=== PATIENT | female | born 1955 | race Hispanic/Latino ===

== ENCOUNTER → 2023-09-17 | Day surgery (SDC) | payer BC, OTHER ==
[2023-09-10 08:36] LABS: BASOPHILS % 0.5 % (0.0-1.0); EOSINOPHILS # (AUTO) 0.1 (0.0-0.4); EOSINOPHILS % 0.9 % (0.0-6.0); HEMATOCRIT 35.2 % (34.2-44.1); HEMOGLOBIN 11.5 g/dL (12.0-16.0); LYMPHOCYTES # (AUTO) 2.5 (1.0-3.2); LYMPHOCYTES % 38.8 % (18.0-39.1); MEAN CORPUSCULAR HEMOGLOBIN 28.4 pg (28-32); MEAN CORPUSCULAR HGB CONC 32.7 g/dL (31-35); MEAN CORPUSCULAR VOLUME 86.9 fL (81-99); MONOCYTES # (AUTO) 0.4 (0.2-0.8); MONOCYTES % 6.1 % (4.4-11.3); NEUTROPHILS # (AUTO) 3.4 (2.1-6.9); NEUTROPHILS % 53.5 % (38.7-80.0); PLATELET COUNT 194 x10e3/uL (140-360); RED BLOOD COUNT 4.05 x10e6/uL (3.6-5.1); RED CELL DISTRIBUTION WIDTH 14.8 % (11.7-14.4)
[~2023-09-17] MED LIST: CARBAMAZEPINE200 MG PO; CRESTOR10 MG PO; CYCLOBENZAPRINE10 MG PO; DEXILANT60 MG PO; FISH OIL 1,0001 EAC7; KAZANO PO; LACTATED RINGER'S 1,000 ML ONE; LEVOCETIRIZINE D5 MG PO; LISINOPRIL5 MG PO; METFORMIN HCL500 MG PO; METOPROLOL TART25 MG PO; MULTI-VITAMIN1 EACH PO; PANTOPRAZOLE SO40 MG PO; PROPOFOL IV EMULSION 10 MG/ML 20 ML VIAL ONE; TEGRETOL XR200 MG PO; TEGRETOL200 MG PO; VASCEPA PO; ZOLPIDEM TARTRAT5 MG PO
[2023-09-17 07:23] VITALS: TEMP 97.8
[2023-09-17 07:35] VITALS: BP 127/61; PULSE 61; RESP 17; O2SAT 100
== END | disposition home or self-care (01) ==
LOC: OR 05:12
PROVIDERS: ATTEND Internal Medicine Gastroenterology
DX: K92.1 Melena (principal); K57.30 Diverticulosis of large intestine without perforation or abscess without bleeding; K59.00 Constipation, unspecified; K64.8 Other hemorrhoids; K21.9 Gastro-esophageal reflux disease without esophagitis; I10 Essential (primary) hypertension; E11.9 Type 2 diabetes mellitus without complications; Z79.84 Long term (current) use of oral hypoglycemic drugs; F32.A Depression, unspecified; M85.80 Other specified disorders of bone density and structure, unspecified site; G43.909 Migraine, unspecified, not intractable, without status migrainosus; M19.91 Primary osteoarthritis, unspecified site; M54.2 Cervicalgia; M54.9 Dorsalgia, unspecified; G89.29 Other chronic pain; Z01.810 Encounter for preprocedural cardiovascular examination; Z01.812 Encounter for preprocedural laboratory examination; Z79.899 Other long term (current) drug therapy
CPT/HCPCS: 36415 ×2; 45378; 82948; 85025; 93005; J2704; J7121

== ENCOUNTER → 2024-09-15 | Day surgery (SDC) | payer BC, OTHER ==
[2024-09-08 10:16] LABS: BASOPHILS # (AUTO) 0.1 (0.0-0.1); BASOPHILS % 0.8 % (0.0-1.0); EOSINOPHILS % 0.7 % (0.0-6.0); HEMATOCRIT 37.2 % (34.2-44.1); HEMOGLOBIN 11.6 g/dL (12.0-16.0); LYMPHOCYTES # (AUTO) 1.7 (1.0-3.2); MEAN CORPUSCULAR HEMOGLOBIN 28.9 pg (28-32); MEAN CORPUSCULAR HGB CONC 31.2 g/dL (31-35); MEAN CORPUSCULAR VOLUME 92.5 fL (81-99); MONOCYTES # (AUTO) 0.3 (0.2-0.8); MONOCYTES % 5.6 % (4.4-11.3); NEUTROPHILS # (AUTO) 3.9 (2.1-6.9); NEUTROPHILS % 64.6 % (38.7-80.0); PLATELET COUNT 145 x10e3/uL (140-360); RED BLOOD COUNT 4.02 x10e6/uL (3.6-5.1); RED CELL DISTRIBUTION WIDTH 15.5 % (11.7-14.4); WHITE BLOOD COUNT 6.03 x10e3/uL (4.8-10.8)
[~2024-09-15] MED LIST changes: -LACTATED RINGER'S 1,000 ML ONE; +LEVOTHYROXINE50 MCG PO; +MIDAZOLAM HCL 2 MG/2 ML VIAL ONE; -PROPOFOL IV EMULSION 10 MG/ML 20 ML VIAL ONE
[2024-09-15] MEDS: LACTATED RINGER'S 1,000 ML ONE (07:00)
[2024-09-15 08:36] VITALS: TEMP 97.1
[2024-09-15 08:50] VITALS: BP 121/66; PULSE 68; RESP 18; O2SAT 100
== END | disposition home or self-care (01) ==
LOC: OR 06:18
PROVIDERS: ATTEND Internal Medicine Gastroenterology
DX: K21.9 Gastro-esophageal reflux disease without esophagitis (principal); K29.50 Unspecified chronic gastritis without bleeding; K44.9 Diaphragmatic hernia without obstruction or gangrene; K57.30 Diverticulosis of large intestine without perforation or abscess without bleeding; K58.9 Irritable bowel syndrome, unspecified; E11.9 Type 2 diabetes mellitus without complications; I10 Essential (primary) hypertension; E78.5 Hyperlipidemia, unspecified; E03.9 Hypothyroidism, unspecified; Z88.6 Allergy status to analgesic agent; Z01.810 Encounter for preprocedural cardiovascular examination; Z01.812 Encounter for preprocedural laboratory examination; Z79.84 Long term (current) use of oral hypoglycemic drugs; Z79.899 Other long term (current) drug therapy
CPT/HCPCS: 36415; 43239; 85025; 88305; 88342; 93005; J2250; J7121; 88312